=== PATIENT | male | born 1985 | race Caucasian/White ===

== ENCOUNTER 2024-03-23 10:06 | Outpatient (AMB) | payer OTHER, SELFPAY ==
--- NOTE | 2024-03-23 10:21 | MHC.PC.OV ---
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 He transferred from [facility] in [place]. Patient had surgery in 08/10/2021 to repair a torn labrum in the left shoulder with Dr. Escalante. [place] returned to work [id number]. Patient developed left shoulder and upper arm pain 05/12/2023. 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 05/24/2023 was his 1st day out from work after that. The patient had an MRI of his shoulder without contrast in 11/11/2023 which demonstrated no abnormalities to explain shoulder and arm pain. He then had an MRI of the chest without contrast in 12/11/2023 which showed no significant abnormalities. Patient says he was referred to a specialist at [facility] who thought he may have thoracic outlet syndrome. Patient says he was referred to testing, but he was never contacted to schedule it. He did not follow up because of the distance to that office. Patient endorses constant pain in his left upper arm and shoulder. It is worse with any attempt to move his arm. It is very painful if he lifts his arm up above his shoulder. Patient describes pain as burning, sharp and sometimes shooting down his arm. It ranges from a 6 to 8/10 with activity. Some days are worse than others. He endorses decrease in strength of the left shoulder. He takes 800 mg of ibuprofen 3 times a day along with acetaminophen a 1000 mg 3 times daily as needed. This takes the edge off of symptoms, but it does not alleviate pain completely. Denies color change extremity, numbness, tingling or cool sensation. Patient is distressed because he wants to know what is causing his symptoms, and he ended up losing his job because he could not return to work. He was denied unemployment. Patient did physical therapy June through 09/11/2023 without relief. Patient is right-hand dominant. Patient does not currently have psychiatrist or therapist. He takes Prilosec 20 mg daily for GERD. ROS: Constitutional: No unexplained weight loss, fever, chills, fatigue or night sweats. Eyes: No vision changes, blurry vision, double vision, eye pain, eye redness, eye discharge. ENT: No hearing loss, sneezing, congestion, runny nose or sore throat. Respiratory: No shortness of breath, cough or sputum production. Cardiovascular: No chest pain, chest pressure or chest discomfort. No palpitations or pedal edema. Gastrointestinal: No anorexia, nausea, vomiting or diarrhea. No abdominal pain or blood in stool. Genitourinary: No dysuria, hematuria, urinary frequency. Neurologic: No headache, dizziness, syncope, unilateral weakness, ataxia, numbness or tingling in the extremities. Musculoskeletal: No muscle pain, back pain, joint pain or swelling. Hematologic/Lymphatics: No bleeding or bruising. No painful lymph nodes. Skin: No rash or itching. Endocrine: No cold or heat intolerance. No polyuria or polydipsia. Psychiatric: No depression or anxiety. No SI/HI. Physical exam: Constitutional: Alert, in no distress. Neck: Supple, Full range of motion. No lymphadenopathy. Respiratory: Clear to auscultation. Cardiovascular: S1 S2 regular. No murmurs. Neurologic: No focal neurological deficits. Symmetric patellar reflexes. Moves all extremities spontaneously. Sensation intact bilaterally. Skin: No rashes or discoloration. Cervical spine: Full range of motion, nontender. Musculoskeletal: Negative Tod maneuver. Patient winces in pain with left shoulder abduction, adduction and internal rotation. Mildly positive left empty can maneuver. Negative Speed's test bilaterally. The left posterior shoulder is tender to palpation. No shoulder crepitus or obvious visual deformity. No winging of the scapula. Left shoulder strength 4/5. Right shoulder strength 5/5. 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 Extremities: Warm and well perfused. No clubbing, cyanosis or edema. 3+ radial pulses bilaterally. 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 1. Little interest or pleasure in doing things: more than half the days 2. Feeling down, depressed, or hopeless: several days 3. Trouble falling or staying asleep, or sleeping too much: more than half the days 4. Feeling tired or having little energy: several days 5. Poor appetite or overeating: more than half the days 6. Feeling bad about yourself - or that you are a failure or have let yourself or your family down: several days 7. Trouble concentrating on things, such as reading the newspaper or watching television: several days 8. Moving or speaking so slowly that other people could have noticed. Or the opposite - being so fidgety or restless that you have been moving around a lot more than usual: not at all 9. Thoughts that you would be better off or of hurting yourself in some way: not at all Total score: 10 Source: Developed by Drs. Daryn Almaraz, Danette Palomo, Angel Zhao and colleagues, with an educational salena from [employer]. Thrive Questionnaire Date Thrive assessed: 03/20/24 I am a: Patient What is your living situation today?: I have a steady place to live Within the past 12 months, did the food you bought not last and you didn't have the money to get more?: Sometimes True Within the past 12 months, did you worry whether your food would run out before you got money to buy more?: Sometimes True Do you have trouble paying for medicines?: No Do you have trouble getting transportation to medical appointments?: No Do you have trouble paying your heating and electricity bill?: No Do you have trouble taking care of your child, family member or friend?: No Do you have trouble with day-to-day activities such as bathing, preparing meals, shopping, managing finances, etc.?: No Are you currently unemployed and looking for a job?: Yes Are you interested in more education?: No Please select the resources that you would like help with: None Currently or been in a relationship where the following occur: No concerns reported THRIVE Score: 2 AUDIT C Alcohol Use Questionnaire (AUDIT-C) 1. How often do you have a drink containing alcohol?: Never 2. How many drinks containing alcohol do you have on a typical day when you are drinking?: 1 or 2 3. How often do you have six or more drinks on one occasion?: Never Total Score: 0 YASMANY-7 AMB Questionnaire YASMANY-7 Feeling nervous, anxious, or on edge: 3 = Nearly every day Not being able to stop or control worryin = Nearly every day Worrying too much about different things: 3 = Nearly every day Trouble relaxin = Nearly every day Being so restless that it is hard to sit still: 3 = Nearly every day Becoming easily annoyed or irritable: 1 = Several days Feeling afraid as if something awful might happen: 3 = Nearly every day Total YASMANY-7 score (0-4 normal; 5-9 mild; 10-14 moderate; 15-21 severe): 19 Source: Developed by Drs. Daryn Almaraz, Danette Palomo, Angel Zhao and colleagues, with an educational salena from [employer]. Physical exam (Primary Care) Vital Signs: Last Vital Signs Pulse 110 H 03/23/24 10:29 BP 106/78 03/23/24 10:29 Pulse Ox 96 03/23/24 10:29 Oxygen Delivery Method Room Air 03/23/24 10:29 BMI result Body Mass Index 37.6 Tobacco/Smoking Status: Tobacco use Status Tobacco use date assessed 03/29/24 03/23/24 10:32 Patient Tobacco Use Status Former Tobacco user 03/23/24 10:32 e-Cigarette/Vaping Use Never Used 03/23/24 10:32 PHQ-9: PHQ-9 Score PHQ-9: Total score 10 03/24/24 13:24 Thrive Assessment: Date of Thrive Assessment Date Thrive assessed 03/20/24 03/23/24 10:32 Currently or been in a relationship where the following occur: No concerns reported Coding Level of Care Code New Pt Level 4 (69971) Complex EM visit Add On G2211 Diagnoses Chronic left shoulder pain M25.512; G89.29 Depression with anxiety F41.8 OCD (obsessive compulsive disorder) F42.9 Assessment & Plan Assessment & Plan (1) Chronic left shoulder pain: Code(s): M25.512 - Pain in left shoulder; G89.29 - Other chronic pain Category: Medical Plan: Patient has continued pain despite trial of physical therapy and more than 6 weeks of NSAIDs and behavioral modification (no longer working). Ordered MRI of the shoulder with contrast for evaluation of potential thoracic outlet syndrome. We will discuss referral to appropriate specialists once this is resulted. Renal and hepatic function are normal today. Discontinue ibuprofen. Start meloxicam 15 mg daily. Do not take other NSAIDs. Side effects reviewed with the patient. Patient said he did benefit from gabapentin previously. We will restart 300 mg t.i.d. Advised it may cause sedation and drowsiness and he should not drive or operate heavy machinery if he has side effects. (2) Depression with anxiety: Code(s): F41.8 - Other specified anxiety disorders Category: Medical Plan: I will continue his current medications for now and refer to a psychiatrist and psychologist. (3) OCD (obsessive compulsive disorder): Code(s): F42.9 - Obsessive-compulsive disorder, unspecified Category: Medical Plan Follow up in 3 months for annual physical exam. Orders: Orders Comprehensive Met. Panel 03/23/24 F41.8 - Other specified anxiety disorders, F42.9 - Obsessive-compulsive disorder, unspecified, G89.29 - Other chronic pain, M25.512 - Pain in left shoulder MR shoulder LT w con Today G89.29 - Other chronic pain, M25.512 - Pain in left shoulder Referrals Psychology Referral F41.8 - Other specified anxiety disorders, F42.9 - Obsessive-compulsive disorder, unspecified, G89.29 - Other chronic pain, M25.512 - Pain in left shoulder Psychiatry Outpatient Consultation Service F41.8 - Other specified anxiety disorders, F42.9 - Obsessive-compulsive disorder, unspecified Medications: New omeprazole 20 mg PO DAILY 90 tabs 1RF
[2024-03-23 10:29] VITALS: BP 106/78; PULSE 110; O2SAT 96; BMI 37.6
== END 2024-03-23 11:10 | disposition home or self-care (01) ==
LOC: HO.HMCFM 10:06
PROVIDERS: PCP Physician Assistant Medical; Visit Provider Physician Assistant Medical
DX: M25.512 Pain in left shoulder (principal); G89.29 Other chronic pain; F41.8 Other specified anxiety disorders; F42.9 Obsessive-compulsive disorder, unspecified

== ENCOUNTER → 2024-03-23 10:06 | Outpatient (BNVA) | payer OTHER, SELFPAY | PROVIDERS: Visit Provider Physician Assistant Medical | DX: M25.512 Pain in left shoulder (principal); F41.8 Other specified anxiety disorders; F42.9 Obsessive-compulsive disorder, unspecified; G89.29 Other chronic pain | CPT/HCPCS: 99202 ==

== ENCOUNTER 2024-03-23 11:25 | Outpatient (REF) | payer OTHER, SELFPAY ==
[2024-03-23 14:52] LABS: Alanine Aminotransferase 23 U/L (0-40); Albumin Level 4.1 g/dL (3.5-5.0); Alkaline Phosphatase 69 U/L (39-117); Anion Gap 10 (12-20); Aspartate Amino Transferase 22 U/L (5-37); Bilirubin Total 0.1 mg/dL (0.0-1.0); Blood Urea Nitrogen 16 mg/dL (9-16); Calcium 9.6 mg/dL (8.4-10.2); Carbon Dioxide 23 mmol/L (22-29); Chloride 110 mmol/L (96-108); Estimated Glomerular Filt Rate > 60; Glucose Random 118 mg/dL (60-115); Potassium 4.3 mmol/L (3.3-5.1); Sodium 139 mmol/L (135-145); Total Protein 7.4 g/dL (6.5-8.0)
== END 2024-03-23 11:26 | disposition home or self-care (01) ==
LOC: HO.WFDLDS 11:25
PROVIDERS: Visit Provider Physician Assistant Medical
DX: M25.512 Pain in left shoulder (principal); G89.29 Other chronic pain; F42.9 Obsessive-compulsive disorder, unspecified; F41.8 Other specified anxiety disorders
CPT/HCPCS: 36415; 80053

== ENCOUNTER 2024-09-28 15:52 | Outpatient (AMB) | payer OTHER, SELFPAY ==
--- NOTE | 2024-09-28 16:00 | MHC.PC.OV ---
Vital Signs 09/28/24 16:10 Height 5 ft 4.5 in Weight 218 lb 4 oz BMI 36.9 BP 122/88 Blood Pressure Location Lt brachial Position Sitting Pulse 105 H Pulse Source Pulse Oximeter Temp 97.9 F Temp Source Temporal Artery Scan Pulse Oximetry (%) 95 Oxygen Delivery Method Room Air Intake Visit Reasons: PE annual Intake Note: Thierry presents in the office today for his annual physical. Patient looking for a CT Scan. Thoracic Outlet Syndrome runs in his family. Allergies No Known Allergies Allergy (Verified 09/28/24 16:03) Tobacco use date assessed: 09/28/24 Dental Screening Dental Screen Date: 09/28/24 Did you have a dental visit in the last 12 months?: Yes Did you have a dental problem in the last 6 months where you did not have access to dental care?: No Was dental information given to patient?: Patient has dentist HPI HPI Comments History of Present Illness Details This is a 39-year-old male with a past medical history of GERD, OCD and depression with anxiety presenting for a physical exam. Previously documented: Patient had surgery in 08/10/2021 to repair a torn labrum in the left shoulder with Dr. Escalante. He returned to work [address]. Patient developed left shoulder and upper arm pain 05/12/2023. 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 05/24/2023 was his 1st day out from work after that. The patient had an MRI of his shoulder without contrast in 11/11/2023 which demonstrated no abnormalities to explain shoulder and arm pain. He then had an MRI of the chest without contrast in 12/11/2023 which showed no significant abnormalities. Patient says he was referred to a specialist at [facility] who thought he may have thoracic outlet syndrome. Patient says he was referred to testing, but he was never contacted to schedule it. He did not follow up because of the distance to that office. Patient endorses constant pain in his left upper arm and shoulder. It is worse with any attempt to move his arm. It is very painful if he lifts his arm up above his shoulder. Patient describes pain as burning, sharp and sometimes shooting down his arm. It ranges from a 6 to 8/10 with activity. Some days are worse than others. He endorses decrease in strength of the left shoulder. He takes 800 mg of ibuprofen 3 times a day along with acetaminophen a 1000 mg 3 times daily as needed. This takes the edge off of symptoms, but it does not alleviate pain completely. Denies color change extremity, numbness, tingling or cool sensation. I attempted to order imaging, but per radiology it was recommended he see Orthopedics. He is amenable to this. Refer to [facility]. Trial of Flexeril 10 mg nightly as needed. Do not drive, operate heavy machinery due to risk of sedation and drowsiness. Patient does not currently have psychiatrist or therapist. I referred him in February, but this did not result in appointments. He takes both fluoxetine and Effexor which has worked well for him so I have continued it until he is going to see a psychiatrist. I referred him anew today. He takes Prilosec 20 mg daily for GERD. DUSTY had colon cancer in her 80s. No other family history of colon cancer so we discussed his screening age is 43 years old unless indicated sooner due to change in family history or symptoms. Patient reports that he is up-to-date with vaccinations. He thinks he is up-to-date with tetanus vaccine, but he will check with the pharmacy where he receives his vaccines. ROS: Constitutional: No unexplained weight loss, fever, chills, fatigue or night sweats. Eyes: No vision changes, blurry vision, double vision, eye pain, eye redness, eye discharge. ENT: No hearing loss, sneezing, congestion, runny nose or sore throat. Respiratory: No shortness of breath, cough or sputum production. Cardiovascular: No chest pain, chest pressure or chest discomfort. No palpitations or pedal edema. Gastrointestinal: No anorexia, nausea, vomiting or diarrhea. No abdominal pain or blood in stool. Genitourinary: No dysuria, hematuria, urinary frequency. Neurologic: No headache, dizziness, syncope, unilateral weakness, ataxia, numbness or tingling in the extremities. Musculoskeletal: No muscle pain, back pain, joint pain or swelling. Hematologic/Lymphatics: No bleeding or bruising. No painful lymph nodes. Skin: No rash or itching. Endocrine: No cold or heat intolerance. No polyuria or polydipsia. Psychiatric: No depression or anxiety. No SI/HI. Physical exam: Constitutional: Alert, in no distress. Head: Normocephalic. Eyes: Pupils are equal, round and reactive to light. Extraocular muscles intact. Ear, Nose and Throat: Canals clear. TMs normal. Normal nasal mucosa. No nasal discharge. No oral lesions. Neck: Supple, Full range of motion. No lymphadenopathy. No palpable thyroid masses. Respiratory: Clear to auscultation. Cardiovascular: S1 S2 regular. No murmurs. Gastrointestinal: Abdomen soft, non-tender, non-distended. Normal bowel sounds. No palpable masses. Genitourinary: Decline Neurologic: No focal neurological deficits Skin: Acneiform lesions on face Cervical spine: Full range of motion, nontender. Musculoskeletal: Negative Tod maneuver. Patient winces in pain with left shoulder abduction, adduction and internal rotation. Extremities: Warm and well perfused. No clubbing, cyanosis or edema. Intact upper and lower extremity peripheral pulses. Psychiatric: Normal mood and affect [facility] Medical History (Updated 09/28/24 @ 16:42 by SANDRA Mendoza) Routine physical examination Chronic left shoulder pain OCD (obsessive compulsive disorder) Depression with anxiety Family History (Updated 09/28/24 @ 16:10 by Rosemary Tillman MA) Mother FHx: mental illness Father FHx: mental illness Brother FHx: mental illness Maternal Aunt FHx: mental illness Maternal Grandmother FHx: mental illness Social History (Updated 09/28/24 @ 16:10 by Rosemary Tillman MA) Housing: Apartment Alcohol intake: never Patient Tobacco Use Status: Former Tobacco user Cigarette Packs Per Day: 0.5 Years Smoked: 15 e-Cigarette/Vaping Use: Never Used Second Hand Smoke Exposure: No Substance Use Type: Marijuana service: No Current occupational status: unemployed Cognitive needs: No Hearing needs: Yes (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 1. Little interest or pleasure in doing things: several days 2. Feeling down, depressed, or hopeless: several days 3. Trouble falling or staying asleep, or sleeping too much: several days 4. Feeling tired or having little energy: several days 5. Poor appetite or overeating: several days 6. Feeling bad about yourself - or that you are a failure or have let yourself or your family down: several days 7. Trouble concentrating on things, such as reading the newspaper or watching television: not at all 8. Moving or speaking so slowly that other people could have noticed. Or the opposite - being so fidgety or restless that you have been moving around a lot more than usual: not at all 9. Thoughts that you would be better off or of hurting yourself in some way: not at all Total score: 6 Depression Screening Interpretation: Positive Depression Screening Done: Yes 21543 - PHQ-9 Billing: Patient declined-do not bill Source: Developed by Drs. Daryn Almaraz, Danette Palomo, Angel Zhao and colleagues, with an educational salena from [employer]. Thrive Questionnaire Date Thrive assessed: 09/28/24 I am a: Patient What is your living situation today?: I have a steady place to live Within the past 12 months, did the food you bought not last and you didn't have the money to get more?: Sometimes True Within the past 12 months, did you worry whether your food would run out before you got money to buy more?: Sometimes True Do you have trouble paying for medicines?: No Do you have trouble getting transportation to medical appointments?: No Do you have trouble paying your heating and electricity bill?: No Do you have trouble taking care of your child, family member or friend?: No Do you have trouble with day-to-day activities such as bathing, preparing meals, shopping, managing finances, etc.?: Yes Are you currently unemployed and looking for a job?: No Are you interested in more education?: No Please select the resources that you would like help with: Food Currently or been in a relationship where the following occur: No concerns reported THRIVE Score: 2 AUDIT C Alcohol Use Questionnaire (AUDIT-C) 1. How often do you have a drink containing alcohol?: Never 2. How many drinks containing alcohol do you have on a typical day when you are drinking?: 1 or 2 3. How often do you have six or more drinks on one occasion?: Never Total Score: 0 Score Reviewed/Action Taken: No YASMANY-7 AMB Questionnaire YASMANY-7 Feeling nervous, anxious, or on edge: 1 = Several days Not being able to stop or control worryin = Several days Worrying too much about different things: 1 = Several days Trouble relaxin = Several days Being so restless that it is hard to sit still: 1 = Several days Becoming easily annoyed or irritable: 1 = Several days Feeling afraid as if something awful might happen: 1 = Several days Total YASMANY-7 score (0-4 normal; 5-9 mild; 10-14 moderate; 15-21 severe): 7 Source: Developed by Drs. Daryn Almaraz, Danette Palomo, Angel Zhao and colleagues, with an educational salena from [employer]. YASMANY-7 Assessment Billing YASMANY-7 Assessment Tool: YASMANY-7 Assessment 97249 Physical exam (Primary Care) Vital Signs: Last Vital Signs Temp 97.9 F 09/28/24 16:10 Pulse 105 H 09/28/24 16:10 BP 122/88 09/28/24 16:10 Pulse Ox 95 09/28/24 16:10 Oxygen Delivery Method Room Air 09/28/24 16:10 BMI result Body Mass Index 36.9 Tobacco/Smoking Status: Tobacco use Status Tobacco use date assessed 09/28/24 09/28/24 16:03 Patient Tobacco Use Status Former Tobacco user 09/28/24 16:10 e-Cigarette/Vaping Use Never Used 09/28/24 16:10 PHQ-9: PHQ-9 Score PHQ-9: Total score 6 09/28/24 16:03 Depression Screening Interpretation: Positive Thrive Assessment: Date of Thrive Assessment Date Thrive assessed 09/28/24 09/28/24 16:03 Currently or been in a relationship where the following occur: No concerns reported Coding Level of Care Code Est Pt Prev Care 40-64y(73388) Diagnoses Depression with anxiety F41.8 OCD (obsessive compulsive disorder) F42.9 Chronic left shoulder pain M25.512; G89.29 Routine physical examination Z00.00 Additional Codes YASMANY-7 Assessment Billing - YASMANY-7 Assessment Tool: YASMANY-7 Assessment 22341 ([id number]) Assessment & Plan Assessment & Plan (1) Depression with anxiety: Code(s): F41.8 - Other specified anxiety disorders Category: Medical (2) OCD (obsessive compulsive disorder): Code(s): F42.9 - Obsessive-compulsive disorder, unspecified Category: Medical (3) Chronic left shoulder pain: Code(s): M25.512 - Pain in left shoulder; G89.29 - Other chronic pain Category: Medical Plan: Refer to [facility]. See HPI (4) Routine physical examination: Code(s): Z00.00 - Encounter for general adult medical examination without abnormal findings Category: Medical Plan: Patient is seen today for a routine physical. As part of this visit we reviewed the following issues, which are considered and essential part of preventative health in this age group: - Testicular cancer screening, which includes self exam teaching - Screening for colon cancer - Discussed Prostate cancer screening - Blood pressure screenin - Cholesterol screening - Nutritional and exercise counseling - Counseling of injury prevention including fire prevention, smoke alarms and seat belt usage - Screening for depression - Prevention of and/or testing for infectious diseases - Education about skin cancer - Recommendations about immunizations - Recommendation of an eye exam - Screening for substance abuse Plan Follow up in 6 months. Orders: Orders Prostate Specific Antigen Today Z00.00 - Encounter for general adult medical examination without abnormal findings, Z12.5 - Encounter for screening for malignant neoplasm of prostate, Z13.6 - Encounter for screening for cardiovascular disorders Comprehensive Met. Panel Today Z00.00 - Encounter for general adult medical examination without abnormal findings, Z13.6 - Encounter for screening for cardiovascular disorders Complete Blood Count no Diff Today Z00.00 - Encounter for general adult medical examination without abnormal findings, Z13.6 - Encounter for screening for cardiovascular disorders Lipid Panel Today E78.5 - Hyperlipidemia, unspecified, Z00.00 - Encounter for general adult medical examination without abnormal findings, Z13.6 - Encounter for screening for cardiovascular disorders Referrals Orthopedics Referral G89.29 - Other chronic pain, M25.512 - Pain in left shoulder Psychiatry Referral F41.8 - Other specified anxiety disorders, F42.9 - Obsessive-compulsive disorder, unspecified Behavioral Health Referral F41.8 - Other specified anxiety disorders, F42.9 - Obsessive-compulsive disorder, unspecified Medications: New cyclobenzaprine 10 mg PO BEDTIME PRN 30 tabs 0RF muscle spasm
[2024-09-28 16:10] VITALS: BP 122/88; PULSE 105; TEMP 36.6; O2SAT 95; BMI 36.9
--- OUTSIDE RECORDS SUMMARY | 2024-09-28 16:13 | XMS_ITS | Referral Summary ---
Author Organization [facility] Address [address] [place] [address] Care Team Providers Care Billing Adjudicator Name Role Phone Kaiden Cruz Primary Care Provider [phone] Allergies No known active allergies Medications No known medications Active Problems No known active problems Social History Tobacco Use Types Packs/Day Years Used Date Smoking Tobacco: Never Assessed Sex and Gender Information Value Date Recorded Sex Assigned at Male 12/20/2023 1:59 PM EDT Legal Sex Male 10:23 AM EDT Gender Identity Male 12/20/2023 1:59 PM EDT Sexual Orientation Straight 12/20/2023 1: 59 PM EDT Plan of Treatment Not on file Insurance [employer] Care Teams Billing Adjudicator Relationship Specialty Start Date End Date Kaiden Cruz [address] [place] [id number] PCP - General Internal Medicine 12/16/23
--- OUTSIDE RECORDS SUMMARY | 2024-09-28 16:13 | XMS_ITS | Clinical Summary ---
Author Organization [facility] Address [address] [place] [address] Care Team Providers Care Housing Specialist Name Role Phone Kaiden Cruz Primary Care Provider [phone] Allergies No known active allergies Medications No [...] 1: 59 PM EDT Plan of Treatment Health Maintenance Due Date Last Done Comments HIV Screening 1985 Hepatitis C Screening 1985 Varicella Vaccines (1 of 2 - 13+ 2-dose series) 09/15/1996 Hepatitis B Vaccines (1 of 3 - 19+ 3-dose series) 09/15/2002 DTaP,Tdap,and Td Vaccines (1 - Tdap) 09/15/2005 COVID-19 Vaccine ( - season) 2024 10/09/2020, 09/18/2020 Alcohol/Substance Use Screening 05/24/2024 Depression Screening and Follow-Up 05/24/2024 Social Drivers of Health Annual Screening 05/24/2024 Influenza Vaccine (Season Ended) 2025 03/26/2023, 06/05/2022, 03/20/2017, Additional history exists RSV Vaccine (60+ years old and patients) (1 - 1-dose 75+ series) 09/15/2058 Pneumococcal Vaccine: Pediatric (0-5 Years) and At-Risk Patients (6-50 Years) Aged Out No longer eligible based on patient's age to complete this topic Insurance [employer] Care Teams Housing Specialist Relationship Specialty Start Date End Date Kaiden Cruz [address] [place] [id number] PCP - General Internal Medicine 12/16/23
== END 2024-09-28 16:58 | disposition home or self-care (01) ==
LOC: HO.HMCFM 15:53
PROVIDERS: PCP Physician Assistant Medical; Visit Provider Physician Assistant Medical
DX: F41.8 Other specified anxiety disorders (principal); F42.9 Obsessive-compulsive disorder, unspecified; M25.512 Pain in left shoulder; G89.29 Other chronic pain; Z00.00 Encounter for general adult medical examination without abnormal findings

== ENCOUNTER → 2024-09-28 15:52 | Outpatient (BNVA) | payer OTHER, SELFPAY | PROVIDERS: PCP Physician Assistant Medical; Visit Provider Physician Assistant Medical | DX: Z00.00 Encounter for general adult medical examination without abnormal findings (principal); K21.9 Gastro-esophageal reflux disease without esophagitis; F41.8 Other specified anxiety disorders; F42.9 Obsessive-compulsive disorder, unspecified; M25.512 Pain in left shoulder; G89.29 Other chronic pain; E78.5 Hyperlipidemia, unspecified; Z87.891 Personal history of nicotine dependence | CPT/HCPCS: 96127; 99396 ==